=== PATIENT | male | born 1975 | race Caucasian/White ===

== ENCOUNTER 2020-08-20 20:16 | Emergency (ER) | payer BC, OTHER ==
[~2020-08-20] VITALS: Ht 182.9 cm; Wt 79.4 kg
[2020-08-20 20:19] VITALS: BP 154/93
[2020-08-21] MEDS ORDERED: ONDANSETRON ODT 4 MG TAB PO ONE (01:45)
[2020-08-21] MEDS ORDERED: HYDROcodone-ACET 10/325MG TAB PO ONE (01:45)
== END 2020-08-21 03:10 | disposition home or self-care (01) ==
LOC: ER 20:16
DX: S82.62XA Displaced fracture of lateral malleolus of left fibula, initial encounter for closed fracture (principal); E78.00 Pure hypercholesterolemia, unspecified; V29.9XXA Motorcycle rider (driver) (passenger) injured in unspecified traffic accident, initial encounter; Y93.89 Activity, other specified; Y92.89 Other specified places as the place of occurrence of the external cause; Y99.8 Other external cause status
CPT/HCPCS: 29515; 73610; 99283; Q0162